=== PATIENT | female | born 1985 | race Caucasian/White ===

== ENCOUNTER 2017-09-01 14:49 | Emergency (ER) | payer OTHER, SELFPAY ==
[2017-09-01 14:59] VITALS: BP 132/78; PULSE 100; RESP 20; TEMP 36.8; O2SAT 98; BMI 23.1
--- NOTE | 2017-09-01 15:14 | HMH.EDUTC ---
[facility] [place] Disposition Clinical Impression: URI (upper respiratory infection) Disposition: Home, Self-Care Condition on Discharge: Good Instructions: Sore Throat, DI for Nasal Congestion Additional Instructions: * Monitor Temp. Tylenol and/or Ibuprofen as needed. ER if fever is no less than 101 despite alternating Tylenol and Ibuprofen * Encourage fluids, water, Gatorade, powerade, pedialyte if /toddler/or child * Warm salt water gargles for throat irritation *Warm fluids *Sore throat lozenges *Sleep elevated *humidifier or vaporizer Lots of rest Increase fluids, water, Gatorade, powerade *Flonase 2 sprays each nostril daily but may take 2-3 days to notice improvement with it *Bromfed may cause drowsiness. Know how it effect you or your child. Before driving, caring for small children or sending your child to school *Your throat swab was sent to lab for culture. Those results area typically sent to your primary care physician. Be sure to follow up in 2-3 days if no improvement so they can review those results and treat if necessary If you dont have primary care I recommend you get one, but in the mean time you will have to return to a walk in clinic Follow up IMMEDIATELY for new or worsening of symptoms OR no noticeable improvement over the next 48-72 hours. 911 immediately for any life threatening symptoms such as chest pain or difficulty breathing Prescriptions: Brompheniramine/Pseudoephed/Dm [Bromfed DM Cough Syrup 5mL] 10 ml PO Q4HP PRN #250 ml PRN Reason: Cough Fluticasone Propionate [Flonase 50mcg nasal spray 16gm] 2 spr NS DAILY #1 bottle Time of Disposition: 15:38 Medical Decision Making - Medical Records Medical records reviewed: Yes: I reviewed the patient's medical records. Vital Signs: 09/01/17 14:59 09/01/17 15:34 Temperature 98.3 F 98.7 F Temperature Source Temporal Artery Scan Pulse Rate 78 Pulse Rate [Right] 100 H Respiratory Rate 20 18 Blood Pressure 130/70 Blood Pressure [Right Arm] 132/78 Blood Pressure Mean [Right Arm] 96 Blood Pressure Source [Right Arm] Automatic Cuff Blood Pressure Position [Right Arm] Sitting 02 Sat by Pulse Oximetry 98 Oxygen Delivery Method Room Air Orders (Tests/Meds): ED MEDICATIONS Discontinued Medications Generic Name Dose Route Start Last Admin Trade Name James PRN Reason Stop Dose Admin Ceftriaxone Sodium 1 gm 09/01/17 15:19 09/01/17 15:26 Rocephin 1gm Vial IM 09/01/17 15:20 1 gm ONCE ONE Administration Lidocaine HCl 0 ml 09/01/17 15:19 09/01/17 15:27 Lidocaine 1% 10ml Mdv IM 09/01/17 15:20 2 ml ONCE ONE Administration Methylprednisolone Sodium Succinate 125 mg 09/01/17 15:19 09/01/17 15:27 Solu-Medrol 125mg/2ml Vial IM 09/01/17 15:20 125 mg ONCE ONE Administration - Robert Inquiry Pt receiving controlled substance: No Robert was queried for this patient: No [facility] [place] HPI - General Stated complaint: sore throat ears ache Mode of Arrival: Ambulatory Source of Information: Patient Limitations: No Limitations Description of Symptoms (Recalled from Triage Doc. by RN): SINUS PRESSURE X1 WK HEENT Symptoms (Recalled from RN notes): Yes Resp Symptoms (Recalled from RN notes): No Skin Symptoms (Recalled from RN notes): No MS Symptoms (Recalled from RN notes): No Functional Status (Recalled from RN notes): N - History of Present Illness Provider Complaint: Patient states that she has been having sore throat, body aches, chills, and bilateral ear pain and fullness for over a week now State that she has continued to feel worse she she came down to get checked for the flu - Related Data Previous Rx's Medication Instructions Recorded Brompheniramine/Pseudoephed/Dm 10 ml PO Q4HP PRN #250 ml 09/01/17 [Bromfed DM Cough Syrup 5mL] Fluticasone Propionate [Flonase 2 spr NS DAILY #1 bottle 09/01/17 50mcg nasal spray 16gm] Allergies Allergy/AdvReac Type Severity Reaction Status Date / Time TAPE
--- NOTE | 2017-09-01 15:19 | ED_ITS ---
[facility] [place] Clinical Impression: URI (upper respiratory infection) Disposition: Home, Self-Care Condition on Discharge: Good Instructions: Sore Throat, DI for Nasal Congestion Additional Instructions: * Monitor Temp. Tylenol and/or Ibuprofen as needed. ER if fever is no less than 101 despite alternating Tylenol and Ibuprofen * Encourage fluids, water, Gatorade, powerade, pedialyte if infant/toddler/or child * Warm salt water gargles for throat irritation *Warm fluids *Sore throat lozenges *Sleep elevated *humidifier or vaporizer Lots of rest Increase fluids, water, Gatorade, powerade *Flonase 2 sprays each nostril daily but may take 2-3 days to notice improvement with it *Bromfed may cause drowsiness. Know how it effect you or your child. Before driving, caring for small children or sending your child to school *Your throat swab was sent to lab for culture. Those results area typically sent to your primary care physician. Be sure to follow up in 2-3 days if no improvement so they can review those results and treat if necessary If you don? t have primary care I recommend you get one, but in the mean time you will have to return to a walk in clinic Follow up IMMEDIATELY for new or worsening of symptoms OR no noticeable improvement over the next 48-72 hours. 911 immediately for any life threatening symptoms such as chest pain or difficulty breathing Prescriptions: Brompheniramine/Pseudoephed/Dm [Bromfed DM Cough Syrup 5mL] 10 ml PO Q4HP PRN # 250 ml PRN Reason: Cough Fluticasone Propionate [Flonase 50mcg nasal spray 16gm] 2 spr NS DAILY #1 bottle Time of Disposition: 15:38 Medical Decision Making - Medical Records Medical records reviewed: Yes: I reviewed the patient's medical records. Vital Signs: 09/01/17 14:59 09/01/17 15:34 Temperature 98.3 F 98.7 F Temperature Source Temporal Artery Scan Pulse Rate 78 Pulse Rate [Right] 100 H Respiratory Rate 20 18 Blood Pressure 130/70 Blood Pressure [Right Arm] 132/78 Blood Pressure Mean [Right Arm] 96 Blood Pressure Source [Right Arm] Automatic Cuff Blood Pressure Position [Right Arm] Sitting 02 Sat by Pulse Oximetry 98 Oxygen Delivery Method Room Air Orders (Tests/Meds): ED MEDICATIONS Discontinued Medications Generic Name Dose Route Start Last Admin Trade Name James PRN Reason Stop Dose Admin Ceftriaxone Sodium 1 gm 09/01/17 15:19 09/01/17 15:26 Rocephin 1gm Vial IM 09/01/17 15:20 1 gm ONCE ONE Administration Lidocaine HCl 0 ml 09/01/17 15:19 09/01/17 15:27 Lidocaine 1% 10ml Mdv IM 09/01/17 15:20 2 ml ONCE ONE Administration Methylprednisolone Sodium Succinate 125 mg 09/01/17 15:19 09/01/17 15:27 Solu-Medrol 125mg/2ml Vial IM 09/01/17 15:20 125 mg ONCE ONE Administration - Robert Inquiry Pt receiving controlled substance: No Robert was queried for this patient: No [facility] [place] - General Stated complaint: sore throat ears ache Mode of Arrival: Ambulatory Source of Information: Patient Limitations: No Limitations Description of Symptoms (Recalled from Triage Doc. by RN): SINUS PRESSURE X1 WK HEENT Symptoms (Recalled from RN notes): Yes Resp Symptoms (Recalled from RN notes): No Skin Symptoms (Recalled from RN notes): No MS Symptoms (Recalled from RN notes): No Functional Status (Recalled from RN notes): N - H
[2017-09-01 15:34] VITALS: BP 130/70; PULSE 78; RESP 18; TEMP 37.1
== END 2017-09-01 15:40 | disposition home or self-care (01) ==
PROVIDERS: Emergency Provider Nurse Practitioner; Family Provider Family Medicine
DX: J06.9 Acute upper respiratory infection, unspecified (principal)
CPT/HCPCS: 96372; 99202

== ENCOUNTER → 2017-11-17 13:15 | Outpatient (CLI) | payer OTHER, SELFPAY ==
--- NOTE | 2017-11-17 13:29 | NVE_ITS ---
Venous Exam Indications: 729.5 Pain in limb. Pt had clot in placenta numerous times. IMPRESSIONS 1. There is no evidence of significant Reflux. 2. No evidence of deep or superficial vein thrombosis involving the left lower extremity 3. Note:The usd images associated with this file show the wrong pt name. I discussed with [facility]-- she assures & confirms This negative venous exam is on Meg Schaeffer. ( prelim report as well) History: Medications: Aspirin, 81 mg daily. Left lower extremity venous duplex evaluation. Doppler flow study including spectral analysis, color and james scale imaging. Location: Vascular laboratory. Patient status: Outpatient. Tables: Venous flow and imaging: + +-------+ + Location Overall Flow properties + +-------+ + Left common femoral Patent Normal phasicity; spontaneous; normal augmentation; compressible + +-------+ + Left saphenofemoral junction Patent Compressible + +-------+ + Left profunda femoral Patent Compressible + +-------+ + Left femoral Patent Normal phasicity; spontaneous; normal augmentation; compressible + +-------+ + Left greater saphenous Patent Normal phasicity; spontaneous; normal augmentation; compressible + +-------+ + Left popliteal Patent Normal phasicity; spontaneous; normal augmentation; compressible + +-------+ + Left posterior tibial Patent Compressible + +-------+ + Left peroneal Patent Compressible + +-------+ + Left gastrocnemius Patent Compressible + +-------+ + Left soleal Patent Compressible + +-------+ + (Report amended ) Electronically signed by: Chalino Jordan [id number]
== END ==
PROVIDERS: PCP Nurse Practitioner Family; Visit Provider Nurse Practitioner Family
DX: M79.662 Pain in left lower leg
CPT/HCPCS: 93971

== ENCOUNTER → 2019-05-28 07:57 | Outpatient (POV) | payer OTHER, SELFPAY | PROVIDERS: Visit Provider Dermatology | DX: Z00.00 Encounter for general adult medical examination without abnormal findings (principal) ==

== ENCOUNTER → 2020-05-25 09:53 | Outpatient (CLI) | payer OTHER, SELFPAY ==
[2020-05-25 10:15] LABS: Basophils % 0.5 % (0.1-2.0); Eosinophils % 0.5 % (0.1-12.0); Hematocrit 43.9 % (37.0-47.0); Hemoglobin 15.2 g/dL (12.2-16.2); Lymphocytes % 16.2 % (10-50); Mean Corpuscular HGB Conc 34.7 g/dL (31.8-35.4); Mean Corpuscular Hemoglobin 30.9 pg (27.0-31.2); Mean Platelet Volume 7.6 fl (7.4-10.4); Monocytes # 0.3 K/mm3 (0.1-1.0); Monocytes % 4.3 % (1.7-9.3); Neutrophils # 4.7 K/mm3 (1.8-7.8); Neutrophils % 78.7 % (37.0-80.0); Platelet Count 360 K/mm3 (142-424); Red Blood Count 4.93 M/mm3 (4.20-5.40); Red Cell Distribution Width 13.3 % (11.5-17.5); White Blood Count 5.9 K/mm3 (4.8-10.8)
[2020-05-25 11:23] LABS: Alanine Aminotransferase 24 U/L (12-78); Albumin Level 4.8 g/dl (3.5-5.0); Albumin/Globulin Ratio 1.8 (1.1-1.8); Alkaline Phosphatase 68 U/L (38-126); Anion Gap 14.2 mEq/L (5-15); Aspartate Amino Transferase 25 U/L (14-36); Bilirubin,Total 0.4 mg/dl (0.2-1.3); Blood Urea Nitrogen 12 mg/dl (7-17); Calcium 9.9 mg/dl (8.4-10.2); Carbon Dioxide 24 mmol/L (22.0-30.0); Chloride 106 mmol/L (98-107); Estimated Glomerular Filt Rate 82 ml/min (>60); GFR (African American) 99 ML/MIN (>60); Globulin 2.6 g/dL (1.3-3.2); Glucose 97 mg/dl (74-100); Potassium 4.2 mmoL/L (3.5-5.1); Sodium 140 mmol/L (136-145); Total Protein,Serum 7.4 g/dl (6.3-8.2)
[2020-05-25 11:38] LABS: 25-OH Vitamin D, Total 39.3 ng/mL (30-100)
[2020-05-25 12:28] LABS: Folate > 20.00 ng/mL; Vitamin B12 743 pg/mL (239-931)
[2020-05-26 08:40] LABS: Homocyst(e)ine 8.8 umol/L (0.0-14.5)
[2020-05-29 16:51] LABS: Methylmalonic Acid 129 nmol/L (0-378)
[2020-06-04 19:59] LABS: Vitamin B1 152.1 nmol/L (66.5-200.0)
[2020-06-06 22:28] LABS: Vitamin B6 10.8 ug/L (2.0-32.8)
== END ==
PROVIDERS: Visit Provider Nurse Practitioner Family
DX: E72.12 Methylenetetrahydrofolate reductase deficiency (principal)
CPT/HCPCS: 36415; 80053; 82131; 82306; 82607; 82746; 83090; 84207; 84425; 85025

== ENCOUNTER 2021-07-25 18:52 | Emergency (ER) | payer OTHER, SELFPAY ==
[2021-07-25 19:49] VITALS: BP 142/95; PULSE 98; RESP 16; TEMP 37.1; O2SAT 99; BMI 32.0
[2021-07-25 20:03] LABS: UTC Strep Screen (Rapid) Negative (Negative)
[2021-07-25 20:16] LABS: Influenza A, PCR Not Detected (NotDetected); Influenza B, PCR Not Detected (NotDetected)
--- NOTE | 2021-07-25 20:19 | HMH.EDUTC ---
[facility] [place] Disposition Clinical Impression: COVID-19 Disposition: Home, Self-Care Condition on Discharge: Good Instructions: DI for COVID-19 (Suspected or Confirmed ), Preventing the Spread of Coronavirus Discharge Instructions Additional Instructions: Drink plenty of fluids. Take tylenol or ibuprofen for pain or fever. Take the medications as directed. Follow up with your regular doctor. GO TO THE ER FOR ANY WORSENING SYMPTOMS Quarantine. The health department should call you and give you further instructions about your length of Quarantine and other things. Notify your school or workplace of your results and follow their instructions regarding return to work/school. The cough medication (promethazine dm) will make you drowsy, so don't drive or operate heavy machinery after taking it. Prescriptions: Promethazine/Dextromethorphan [Promethazine-Dm Syrup] 5 ml PO Q6HP PRN #240 ml PRN Reason: Cough Transmission Status: Received by [facility] Ondansetron [Zofran 4mg ODT] 4 mg PO Q8HP PRN #20 tab PRN Reason: Nausea Transmission Status: Received by [facility] Referrals: Adilson Frye MD [Primary Care Provider] - Time of Disposition: 21:09 Medical Decision Making - Medical Records Medical records reviewed: No: I reviewed the patient's medical records. - Robert Inquiry Pt receiving controlled substance: No Vital Signs: 07/25/21 19:49 07/25/21 21:17 Temperature 98.7 F 98.7 F Temperature Source Oral Pulse Rate 98 H Pulse Rate [Left] 98 H Respiratory Rate 16 16 Blood Pressure 142/95 H Blood Pressure [Right Arm] 142/95 H Blood Pressure Mean [Right Arm] 110 02 Sat by Pulse Oximetry 99 - Lab Data Lab results reviewed: Yes: I reviewed the patient's lab results. Lab Results 07/25/21 19:48: SARS-CoV-2 (PCR) Detected A, Influenza A Untype (PCR) Not detected, Influenza Type B (PCR) Not detected 07/25/21 19:52: Strep Scn Rapid Clinic Negative Orders (Tests/Meds): ORDERS Category Date Time Status Upper Respiratory Panel, PCR Stat Lab 07/25/21 19:48 Received Strep Screen Confirmation Routine Micro 07/25/21 19:52 Received [facility] UTC HPI - General Stated complaint: SORE THROAT,COUGH,CONGESTION Time Seen by Provider: 07/25/21 20:19 Mode of Arrival: Ambulatory Source of Information: Patient Limitations: No Limitations Description of Symptoms (Recalled from Triage Doc. by RN): pt c/o a cough, sore throat, and bilateral ear aches. x3 days HEENT Symptoms (Recalled from RN notes): Yes (sore throat and bilateral ear aches) Resp Symptoms (Recalled from RN notes): Yes (cough) Skin Symptoms (Recalled from RN notes): No MS Symptoms (Recalled from RN notes): No Functional Status (Recalled from RN notes): wnl - History of Present Illness Provider Complaint: She states that for the past 3 days she has had sinus congestion, ear pain and pressure, scratchy throat, and a dry cough. She has been traveling, so she thought it was her allergies flaring up, but today she has felt worse and feels like she needs to be tested for covid-19. She denies significant chest congestion and shortness of breath. - Related Data Home Medications Medication Instructions Recorded Confirmed Aspirin [Aspir 81] 81 mg PO DAILY 02/06/18 07/19/19 Fluticasone Propionate [Flonase 2 spr NS DAILY 02/06/18 07/19/19 50mcg nasal spray 16gm] Levocetirizine Dihydrochloride 5 mg PO DAILY 02/06/18 07/19/19 [Xyzal] Levomefolate Calcium 1 tab PO DAILY 02/06/18 07/19/19 [l-Methylfolate Calcium] lactobacillus combination no.8 3 3,000 mmu cells PO DAILY 05/08/19 07/19/19 billion cell capsule multivitamin,[id number] 1 tab PO DAILY 05/08/19 07/19/19 famotidine 20 mg tablet PO PRN 07/19/19 07/19/19 ibuprofen 600 mg tablet PO PRN 07/19/19 07/19/19 Previous Rx's Medication Instructions Recorded amoxicillin 875 mg-potassium 1 tab PO Q12H 10 Days #20 tab 07/19/19 clavulanate 125 mg tabl
[2021-07-25 20:30] LABS: Adenovirus,PCR Not Detected (NotDetected); Bordetella Pertussis Not Detected (NotDetected); Chlamydophila Pneumoniae, PCR Not Detected (NotDetected); Coronavirus 229E Not Detected (NotDetected); Coronavirus NL63 Not Detected (NotDetected); Coronavirus OC43 Not Detected (NotDetected); Coronovirus HKU1,PCR Not Detected (NotDetected); Human Metapneumovirus Not Detected (NotDetected); Influenza A, PCR Not Detected (NotDetected); Influenza AH1, 2009 Not Detected (NotDetected); Influenza AH1, PCR Not Detected (NotDetected); Influenza AH3,PCR Not Detected (NotDetected); Influenza B, PCR Not Detected (NotDetected); Mycoplasma Pneumoniae, PCR Not Detected (NotDetected); Parainfluenza 1, PCR Not Detected (NotDetected); Parainfluenza 2, PCR Not Detected (NotDetected); Parainfluenza 3, PCR Not Detected (NotDetected); Parainfluenza 4, PCR Not Detected (NotDetected); Respiratory Syncytial Virus Not Detected (NotDetected); Rhinovirus/Enterovirus Not Detected (NotDetected)
[2021-07-25 20:38] LABS: Coronavirus 19, PCR Detected (NotDetected)
[2021-07-25 21:17] VITALS: BP 142/95; PULSE 98; RESP 16; TEMP 37.1
== END 2021-07-25 21:29 | disposition home or self-care (01) ==
PROVIDERS: Emergency Provider Nurse Practitioner Family; PCP Internal Medicine Adolescent Medicine
DX: U07.1 COVID-19 (principal); J02.9 Acute pharyngitis, unspecified
CPT/HCPCS: 87486; 87581; 87632; 87798; 87880; 99203; C9803; G0463; U0003; U0005

== ENCOUNTER 2021-07-26 10:05 | Outpatient (CLI) | payer OTHER, SELFPAY ==
[2021-07-26 11:15] VITALS: BP 134/83; PULSE 87; RESP 18; TEMP 36.3; O2SAT 96
[2021-07-26 11:30] VITALS: BP 123/76; PULSE 85; RESP 18; TEMP 36.3; O2SAT 94
[2021-07-26 11:45] VITALS: BP 117/71; PULSE 76; RESP 18; TEMP 36.3; O2SAT 95
[2021-07-26 12:00] VITALS: BP 113/67; PULSE 77; RESP 16; TEMP 36.3; O2SAT 95
[2021-07-26 12:15] VITALS: BP 106/65; PULSE 81; RESP 16; TEMP 36.3; O2SAT 97
[2021-07-26 12:30] VITALS: BP 117/71; PULSE 81; RESP 16; TEMP 36.3; O2SAT 96
== END 2021-07-26 12:46 | disposition home or self-care (01) ==
LOC: COVID.OUT 10:05
PROVIDERS: PCP Internal Medicine Adolescent Medicine; Visit Provider Nurse Practitioner Family
DX: U07.1 COVID-19 (principal); Z23 Encounter for immunization
CPT/HCPCS: 96365

== ENCOUNTER → 2022-02-09 08:53 | Outpatient (CLI) | payer OTHER, SELFPAY ==
--- NOTE | 2022-02-09 08:55 | US_ITS ---
FINAL REPORT CLINICAL HISTORY: RT UPPER QUAD PAIN FINDINGS: Sonographic images of the right upper quadrant were obtained. The pancreas is partially obscured. There is mild fatty infiltration of the liver. The gallbladder appears normal without evidence of gallstones.There is no evidence of biliary ductal dilatation.The common duct measures 3 mm. Limited images of the right kidney are unremarkable. IMPRESSION: Mild fatty liver. Reviewed, Interpreted and Dictated by Isreal Mcclendon III, MD Transcribed by Keisha Brown Authenticated and [facility]
--- NOTE | 2022-02-09 08:56 | US_ITS ---
FINAL REPORT CLINICAL HISTORY: pelvic pain with IUD FINDINGS: Transvaginal sonographic images of the pelvis were obtained. The uterus measures 6.9 by 3.9 by 4.3 cm. No uterine masses identified. An IUD seen within the endometrial cavity. The right ovary measures 3.3 x 3.2 x 2.1 cm. The left ovary measures 2.8 x 1.4 x 2.0 cm. There is a right ovarian cyst measuring 1.8 cm. Blood flow is noted to both ovaries. There is no free fluid. IMPRESSION: Right ovarian cyst. Reviewed, Interpreted and Dictated by Isreal Mcclendon III, MD Transcribed by Keisha Brown Authenticated and [facility]
== END ==
PROVIDERS: PCP Internal Medicine Adolescent Medicine; Visit Provider Nurse Practitioner Family
DX: R10.11 Right upper quadrant pain (principal); R10.2 Pelvic and perineal pain
CPT/HCPCS: 76705; 76830

== ENCOUNTER 2022-07-25 08:22 | Emergency (ER) | payer OTHER, SELFPAY ==
[2022-07-25 08:25] VITALS: BP 147/88; PULSE 85; RESP 20; TEMP 37.2; O2SAT 99; BMI 35.2
--- NOTE | 2022-07-25 08:45 | EXP.UTC ---
Discharge Plan Disposition Patient Disposition: Home, Self-Care Condition: Good Prescriptions Prescriptions: New methylprednisolone [Medrol (Rashi)] 4 mg tablets,dose pack See Rx Instructions .Route .COMPLEX 6 Days Qty: 21 0RF Rx Instructions: taper pack; amoxicillin-pot clavulanate 875-125 mg Tablet 1 tab PO Q12H Qty: 20 0RF No Action aspirin 81 MG tablet,delayed release (DR/EC) 81 mg PO DAILY propranolol 10 mg tablet 10 mg PO BID Label Comments: TAKE ONE TABLET BY MOUTH TWICE DAILY fluticasone propionate 50 mcg/actuation spray,suspension 1 spray INTRANASAL DAILY Label Comments: instill 1 SPRAY IN EACH NOSTRIL EVERY DAY levomefolate calcium 7.5 mg tablet 7.5 mg PO DAILY Label Comments: TAKE ONE TABLET BY MOUTH EVERY DAY levocetirizine 5 mg tablet 5 mg PO DAILY Label Comments: TAKE ONE TABLET BY MOUTH EVERY DAY IN THE EVENING Referrals Follow up/Referrals: Rita Post APRN [Primary Care Provider] - See instructions Activity Restrictions/Add. Instructions Additional Instructions/Restrictions: *Monitor Temp, Over the counter Motrin or Tylenol as directed/as needed Tylenol every 4 hours and Motrin every 6 hours (as long as your family doctor has told you that you can take it) for fever or pain. and straight to ER if unable to lower temp less than 101.0 after medication given *Warm salt water gargles may help to soothe the throat *Throat Lozenges? *Warm fluids like tea with honey may help to soothe the throat? *Sleep elevated *Humidifier/Vaporizer Follow up IMMEDIATELY for new or worsening symptoms or no Noticeable improvement over the next 48-72 hours. 911 for difficulty breathing or swallowing Clinical Impressions Clinical Impression: Sinusitis Instructions Patient Instructions: Sinusitis, DI for Sinusitis Discharge ED Provider: Tonya Toribio [facility] [place] HPI General Stated complaint: Ear pain, sore throat Mode of Arrival: Ambulatory Source of Information: Patient Limitations: No Limitations Time Seen by Provider: 07/25/22 08:45 Description of Symptoms (Recalled from Triage Doc. by RN): PATIENT C/O BILATERAL EAR PAIN AND SINUS PRESSURE HEENT Symptoms (Recalled from RN notes): Yes Resp Symptoms (Recalled from RN notes): No Skin Symptoms (Recalled from RN notes): No MS Symptoms (Recalled from RN notes): No Functional Status (Recalled from RN notes): WNL History of Present Illness Provider Complaint: Patient states that she has been having sinus pain and pressure, pain in both ears and scratchy throat that has continued to get worse over the last couple of days States that today she was having pressure behind her eyes so she came in Related Data Home Medications Medication Instructions Recorded Confirmed aspirin 81 mg tablet,delayed 81 mg PO DAILY Blood thinner 02/06/18 07/25/22 release fluticasone propionate 50 1 spray intranasal DAILY Allergy 07/25/22 07/25/22 mcg/actuation nasal symptoms spray,suspension levocetirizine 5 mg tablet 5 mg PO DAILY Allergy symptoms 07/25/22 07/25/22 levomefolate calcium 7.5 mg tablet 7.5 mg PO DAILY MTNFR 07/25/22 07/25/22 propranolol 10 mg tablet 10 mg PO BID Hypertension 07/25/22 07/25/22 Previous Rx's Medication Instructions Recorded amoxicillin 875 mg-potassium 1 tab PO Q12H #20 tabs 07/25/22 clavulanate 125 mg tablet methylprednisolone 4 mg tablets in See Rx Instructions .Route 07/25/22 a dose pack (Medrol (Rashi)) .COMPLEX 6 days #21 tabs Allergies Allergy/AdvReac Type Severity Reaction Status Date / Time adhesive tape Allergy Verified 07/25/22 08:39 Worker's Comp Is this a Worker's Comp case?: No [facility] Disclaimer: The information contained in this section may have been updated after the patient was seen, as this information can be updated by other users. Medical History (Updated 07/25/22 @ 08:49 by Tonya Toribio APRN) Hyp
[2022-07-25 08:52] VITALS: BP 147/88; PULSE 85; RESP 20; TEMP 37.2; O2SAT 99
== END 2022-07-25 08:56 | disposition home or self-care (01) ==
PROVIDERS: Emergency Provider Nurse Practitioner; PCP Nurse Practitioner Family
DX: J32.9 Chronic sinusitis, unspecified (principal)
CPT/HCPCS: 99212; G0463

== ENCOUNTER → 2022-09-13 07:33 | Outpatient (CLI) | payer OTHER, SELFPAY ==
[2022-09-13 08:03] LABS: Basophils # 0.2 K/mm3 (0-0.2); Basophils % 2.2 % (0.1-2.0); Eosinophils # 0.1 K/mm3 (0.0-0.4); Eosinophils % 0.9 % (0.1-12.0); Hemoglobin 14.6 g/dL (12.2-16.2); Lymphocytes # 1.2 K/mm3 (0.7-4.5); Mean Corpuscular HGB Conc 32.5 g/dL (31.8-35.4); Mean Corpuscular Hemoglobin 30.4 pg (27.0-31.2); Mean Corpuscular Volume 93.3 fl (81-99); Mean Platelet Volume 7.3 fl (7.4-10.4); Monocytes # 0.4 K/mm3 (0.1-1.0); Monocytes % 5.2 % (1.7-9.3); Neutrophils % 73.6 % (37.0-80.0); Platelet Count 333 K/mm3 (142-424); Red Blood Count 4.82 M/mm3 (4.20-5.40); Red Cell Distribution Width 12.9 % (11.5-17.5); White Blood Count 6.8 K/mm3 (4.8-10.8)
[2022-09-13 09:20] LABS: Chloride 112 mmol/L (98-107); Potassium 4.2 mmoL/L (3.5-5.1); Sodium 141 mmol/L (136-145)
[2022-09-13 09:22] LABS: Alanine Aminotransferase 30 U/L (12-78); Alkaline Phosphatase 54 U/L (38-126); Anion Gap 11.2 mEq/L (5-15); Aspartate Amino Transferase 26 U/L (14-36); Bilirubin,Total 0.7 mg/dl (0.2-1.3); Blood Urea Nitrogen 15 mg/dl (7-17); Carbon Dioxide 22 mmol/L (22.0-30.0); Estimated Glomerular Filt Rate 81 ml/min (>60); GFR (African American) 98 ML/MIN (>60)
[2022-09-13 09:23] LABS: Albumin Level 4.5 g/dl (3.5-5.0); Albumin/Globulin Ratio 1.9 (1.1-1.8); Chol/HDL Ratio 5.3 (1-3.5); Cholesterol 190 mg/dl (140-200); Globulin 2.4 g/dL (1.3-3.2); Glucose 98 mg/dl (74-100); HDL Cholesterol 36 mg/dl (40-60); Magnesium 2.1 mg/dl (1.6-2.3); Total Protein,Serum 6.9 g/dl (6.3-8.2); Triglycerides 154 mg/dl (30-150); VLDL Cholesterol 31 mg/dL (0-40)
[2022-09-13 09:54] LABS: Thyroid Stimulating Hormone 1.19 uIU/mL (0.465-4.68)
[2022-09-13 11:15] LABS: Folate > 20.00 ng/mL
== END ==
PROVIDERS: PCP Nurse Practitioner Family; Visit Provider Nurse Practitioner Family
DX: R07.89 Other chest pain (principal); R00.2 Palpitations; I10 Essential (primary) hypertension; E72.12 Methylenetetrahydrofolate reductase deficiency
CPT/HCPCS: 36415; 80053; 80061; 82746; 83735; 84443; 85025

== ENCOUNTER → 2022-10-04 11:41 | Outpatient (CLI) | payer OTHER, SELFPAY ==
--- NOTE | 2022-10-04 11:45 | CA_ITS ---
FINAL REPORT TECHNIQUE: Graded compression, spectral analysis and ultrasound images of the venous system of the upper extremity were obtained. CLINICAL HISTORY: PAIN,EDEMA LT FOREARM SINCE PT FELT SOMETHING PULL IN LEFT ARM LAST NIGHT,PT ON ASA FINDINGS: The jugular vein, subclavian vein, axillary vein, brachial vein, cephalic vein and basilic venous system are fully compressible and demonstrate no evidence of thrombosis. IMPRESSION: No evidence of thrombosis of the venous system of the left upper extremity. Reviewed, Interpreted and Dictated by Isreal Mcclendon III, MD Transcribed by Keisha Brown Authenticated and [facility]
== END ==
PROVIDERS: PCP Nurse Practitioner Family; Visit Provider Nurse Practitioner Family
DX: M79.602 Pain in left arm (principal); M79.89 Other specified soft tissue disorders
CPT/HCPCS: 93971

== ENCOUNTER 2023-05-15 08:51 | Emergency (ER) | payer OTHER, SELFPAY ==
[2023-05-15 09:00] VITALS: BP 131/70; PULSE 75; RESP 18; TEMP 36.7; O2SAT 99; BMI 34.2
--- NOTE | 2023-05-15 09:19 | EXP.UTC ---
Discharge Plan Disposition Patient Disposition: Home, Self-Care Condition: Good Prescriptions Prescriptions: New amoxicillin 875 mg tablet 875 mg PO BID Qty: 20 0RF methylprednisolone [Medrol (Rashi)] 4 mg tablets,dose pack See Rx Instructions .Route .COMPLEX 6 Days Qty: 21 0RF Rx Instructions: taper pack; No Action aspirin 81 MG tablet,delayed release (DR/EC) 81 mg PO DAILY propranolol 10 mg tablet 10 mg PO BID Patient Comments: TAKE ONE TABLET BY MOUTH TWICE DAILY fluticasone propionate 50 mcg/actuation spray,suspension 1 spray INTRANASAL DAILY Patient Comments: instill 1 SPRAY IN EACH NOSTRIL EVERY DAY levomefolate calcium 7.5 mg tablet 7.5 mg PO DAILY Patient Comments: TAKE ONE TABLET BY MOUTH EVERY DAY levocetirizine 5 mg tablet 5 mg PO DAILY Patient Comments: TAKE ONE TABLET BY MOUTH EVERY DAY IN THE EVENING Referrals Follow up/Referrals: Sanju German MD [Primary Care Provider] - See instructions Activity Restrictions/Add. Instructions Additional Instructions/Restrictions: Take medication as prescribed Follow up with your Family Doctor if no improvement or any worsening of symptoms Return if needed Straight to ER if any life threatening symptoms Clinical Impressions Clinical Impression: Otitis media Qualifiers: Otitis media type: unspecified Laterality: bilateral Qualified Code(s): H66.93 - Otitis media, unspecified, bilateral Instructions Patient Instructions: Middle Ear Infection, Amoxicillin Discharge ED Provider: Tonya Toribio [facility] General Stated complaint: EARS AND THROAT Mode of Arrival: Ambulatory Source of Information: Patient Limitations: No Limitations Time Seen by Provider: 05/15/23 09:19 Description of Symptoms (Recalled from Triage Doc. by RN): bilateral ear pain, and throat pain HEENT Symptoms (Recalled from RN notes): Yes Resp Symptoms (Recalled from RN notes): No Skin Symptoms (Recalled from RN notes): No MS Symptoms (Recalled from RN notes): No Functional Status (Recalled from RN notes): n/a History of Present Illness Provider Complaint: Patient states that she has been having bilateral ear pain and pressure and making her throat hurt States that last week she felt like she had pressure in her ears and now she is having pain Related Data Home Medications Medication Instructions Recorded Confirmed aspirin 81 mg tablet,delayed 81 mg PO DAILY Blood thinner 02/06/18 05/15/23 release fluticasone propionate 50 1 spray intranasal DAILY Allergy 07/25/22 07/25/22 mcg/actuation nasal symptoms spray,suspension levocetirizine 5 mg tablet 5 mg PO DAILY Allergy symptoms 07/25/22 05/15/23 levomefolate calcium 7.5 mg tablet 7.5 mg PO DAILY MTNFR 07/25/22 05/15/23 propranolol 10 mg tablet 10 mg PO BID Hypertension 07/25/22 05/15/23 Previous Rx's Medication Instructions Recorded amoxicillin 875 mg tablet 875 mg PO BID #20 tabs 05/15/23 methylprednisolone 4 mg tablets in See Rx Instructions .Route 05/15/23 a dose pack (Medrol (Rashi)) .COMPLEX 6 days #21 tabs Allergies Allergy/AdvReac Type Severity Reaction Status Date / Time adhesive tape Allergy Verified 05/15/23 09:13 Worker's Comp Is this a Worker's Comp case?: No [facility] Disclaimer: The information contained in this section may have been updated after the patient was seen, as this information can be updated by other users. Medical History (Updated 05/15/23 @ 09:24 by Tonya Toribio APRN) Hypertension Migraine Surgical History H/O wisdom tooth extraction History of dilation and curettage History of sinus surgery History of surgery on lower extremity Social History Smoking Status: Never smoker alcohol intake: never substance use type: denies use current occupational status: employed Travel in the last 8 weeks:
[2023-05-15 09:48] VITALS: BP 131/70; PULSE 75; RESP 18; TEMP 36.7; O2SAT 99
== END 2023-05-15 09:48 | disposition home or self-care (01) ==
PROVIDERS: Emergency Provider Nurse Practitioner; PCP Radiology Diagnostic Radiology
DX: H66.93 Otitis media, unspecified, bilateral (principal); I10 Essential (primary) hypertension
CPT/HCPCS: 99212; 99214; G0463

== ENCOUNTER 2023-11-14 10:08 | Outpatient (CLI) | payer OTHER, SELFPAY ==
[2023-11-14 18:36] LABS: Influenza A, PCR Not Detected (NotDetected); Influenza B, PCR Not Detected (NotDetected)
[2023-11-14 20:09] LABS: Coronavirus 19, PCR Detected (NotDetected)
== END 2023-11-14 23:59 | disposition home or self-care (01) ==
LOC: LAB.DROPOF 11-15 10:08
PROVIDERS: PCP Internal Medicine Adolescent Medicine; Visit Provider Student in an Organized Health Care Education/Training Program
DX: U07.1 COVID-19 (principal); R05.9 Cough, unspecified; R50.9 Fever, unspecified; R07.0 Pain in throat; H92.09 Otalgia, unspecified ear; R06.02 Shortness of breath; R53.83 Other fatigue; Z20.822 Contact with and (suspected) exposure to COVID-19
CPT/HCPCS: 87636

== ENCOUNTER 2024-11-07 11:14 | Outpatient (CLI) | payer OTHER, SELFPAY ==
--- NOTE | 2024-11-07 11:17 | XR_ITS ---
FINAL REPORT CLINICAL HISTORY: right hand swelling, pain, redness x 1 day FINDINGS: RIGHT FOREARM 2 views of the right forearm were obtained. There is no acute fracture or dislocation. The joints are intact. There are no soft tissue abnormalities. IMPRESSION: No acute process. Reviewed, Interpreted and Dictated by Tomasz Gorman MD Transcribed by Kala Meyer Authenticated and [facility]
--- NOTE | 2024-11-07 11:17 | XR_ITS ---
FINAL REPORT CLINICAL HISTORY: right hand erythema, pain, swelling primarily 1st digit FINDINGS: RIGHT HAND Three views demonstrate no acute fracture or dislocation. The visualized joint spaces are normally aligned. The soft tissues are unremarkable. IMPRESSION: No acute bony abnormality. Reviewed, Interpreted and Dictated by Tomasz Gorman MD Transcribed by Kala Meyer Authenticated and [facility]
[2024-11-07 11:44] LABS: Basophils # 0.1 K/mm3 (0-0.2); Basophils % 0.8 % (0.1-2.0); Eosinophils % 0.3 % (0.1-12.0); Hematocrit 45.4 % (37.0-47.0); Hemoglobin 15.8 g/dL (12.2-16.2); Lymphocytes % 16.3 % (10-50); Mean Corpuscular HGB Conc 34.8 g/dL (31.8-35.4); Mean Corpuscular Hemoglobin 31.1 pg (27.0-31.2); Mean Corpuscular Volume 89.4 fl (81-99); Mean Platelet Volume 9.5 fl (7.4-10.4); Monocytes # 0.4 K/mm3 (0.1-1.0); Monocytes % 6.1 % (1.7-9.3); Neutrophils # 4.8 K/mm3 (1.8-7.8); Neutrophils % 76.2 % (37.0-80.0); Nucleated Red Blood Cells # 0 10^3/uL; Nucleated Red Blood Cells % 0 %; Platelet Count 357 K/mm3 (142-424); Red Blood Count 5.08 M/mm3 (4.20-5.40); Red Cell Distribution Width 11.6 % (11.5-17.5); Red Cell Distribution Width-SD 37.6 fL; White Blood Count 6.2 K/mm3 (4.8-10.8)
[2024-11-07 11:59] LABS: Activated Partial Thrombo Time 30.2 seconds (22.8-30.6); INR 0.93 (0.9-1.1); Prothrombin Time 10.5 seconds (10.1-12.5)
[2024-11-07 12:07] LABS: D-Dimer 0.72 ug/mL (0.0-0.5)
[2024-11-07 12:29] LABS: Erythrocyte Sedimentation Rate 9 mm/hr (0-20)
[2024-11-07 13:02] LABS: Albumin Level 4.8 g/dl (3.5-5.0); Chloride 105 mmol/L (98-107); Potassium 4.4 mmoL/L (3.5-5.1); Sodium 139 mmol/L (136-145)
[2024-11-07 13:05] LABS: Alanine Aminotransferase 57 U/L (12-78); Albumin/Globulin Ratio 1.7 (1.1-1.8); Alkaline Phosphatase 67 U/L (38-126); Anion Gap 17.4 mEq/L (5-15); Aspartate Amino Transferase 43 U/L (14-36); Bilirubin,Total 0.6 mg/dl (0.2-1.3); Blood Urea Nitrogen 15 mg/dl (7-17); Carbon Dioxide 21 mmol/L (22.0-30.0); Estimated Glomerular Filt Rate 93 ml/min (>60); GFR (African American) 112 ML/MIN (>60); Globulin 2.8 g/dL (1.3-3.2); Total Protein,Serum 7.6 g/dl (6.3-8.2)
[2024-11-07 13:06] LABS: Calcium 9.6 mg/dl (8.4-10.2); Glucose 95 mg/dl (74-100)
[2024-11-07 13:11] LABS: C-Reactive Protein 6.8 mg/L (0-4)
[2024-11-07 14:08] LABS: Uric Acid 5.8 mg/dl (2.5-6.2)
[2024-11-07] MEDS: SODIUM CHLORIDE 0.9% 10ML SYR (RAD ONLY) 10 ML IV (15:17)
[2024-11-07] MEDS: IOPAMIDOL-370 (76%);100ML BOTTLE 75 ML IV (15:17)
--- NOTE | 2024-11-07 15:36 | CT_ITS ---
FINAL REPORT TECHNIQUE: After the administration of intravenous contrast, axial images were obtained through the abdomen and pelvis by computed tomography. Coronal and sagittal reconstructed images were also obtained. The study was performed with techniques to keep radiation dose as low as reasonably achievable, (ALARA). Individual dose reduction techniques using automated exposure control or adjustment of mA and/or kV according to the patient's size were employed. CLINICAL HISTORY: Elevated CRP/AST/D-dimer COMPARISON: None FINDINGS: Abdomen: The lung bases are clear. There is moderate fatty infiltration of the liver. The gallbladder is present. The spleen, pancreas, adrenals and kidneys appear unremarkable. The aorta is normal in caliber. There is no free fluid or adenopathy. Pelvis: The appendix is is unremarkable. There is a moderate amount of stool in the rectum. The uterus is anteverted. There is an IUD present. There is a 4.5 cm exophytic fibroid arising from the anterior margin of the fundus of the uterus. This fibroid is best seen on sagittal image 55 of series 602. IMPRESSION: Exophytic fibroid arising from the fundus of the uterus. Moderate amount of stool in the rectum. Reviewed, Interpreted and Dictated by Tomasz Gorman MD Transcribed by Eve Lisa Authenticated and [facility]
[2024-11-09 12:05] LABS: Peripheral Smear Review Scanned Result
[2024-11-11 13:47] LABS: Anti-Centromere B Antibodies <0.2 AI (0.0-0.9); Anti-DNA (DS) Ab Qn 1 IU/mL (0-9); Anti-Jo-1 <0.2 AI (0.0-0.9); Anti-Smith Antibody <0.2 AI (0.0-0.9); Antichromatin Antibodies <0.2 AI (0.0-0.9); Antiscleroderma-70 Antibodies <0.2 AI (0.0-0.9); RNP Antibodies 0.4 AI (0.0-0.9); Sjogren's Anti-SS-A <0.2 AI (0.0-0.9); Sjogren's Anti-SS-B <0.2 AI (0.0-0.9)
== END 2024-11-07 23:59 | disposition home or self-care (01) ==
PROVIDERS: PCP Nurse Practitioner Family; Visit Provider Nurse Practitioner Family
DX: M79.89 Other specified soft tissue disorders (principal); M79.641 Pain in right hand; R41.3 Other amnesia; R53.83 Other fatigue; R23.3 Spontaneous ecchymoses; R79.89 Other specified abnormal findings of blood chemistry; R74.01 Elevation of levels of liver transaminase levels; R79.82 Elevated C-reactive protein (CRP)
CPT/HCPCS: 73090; 73130; 74177; 80053; 84550; 85025; 85378; 85610; 85651; 85730; 86140; 86225; 86235; Q9967